=== PATIENT | male | born 1970 | race Caucasian/White ===

== ENCOUNTER 2019-06-06 09:39 | Day surgery (SDC) | payer MEDICARE ==
--- NOTE | 2019-06-06 12:47 | OP ---
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 PROCEDURE PERFORMED: Colonoscopy with biopsies. INDICATION: A 49-year-old man with chronic diarrhea. This is his first colonoscopy. MEDICATIONS: See Anesthesia record. FINDINGS: After discussion of the risks, benefits, and alternatives of the procedure, informed consent was obtained and witnessed. Pre-endoscopic cardiopulmonary examination was satisfactory. Time-out was performed before sedation was achieved. Sedation was achieved with Anesthesia assistance in the endoscopy unit. Digital rectal exam was performed, which was unremarkable. A Pentax adult colonoscope was inserted into the anus and passed forward to the cecum in the usual fashion. The cecal base was identified by the appendiceal orifice as well as the ileocecal valve, seen on retroflexion in the right colon. The terminal ileum was intubated. The ileal mucosa appeared normal. The colonoscope was slowly withdrawn in a gradual and circumferential manner with careful examination of the entire colonic mucosa. The quality of the prep was good. The colonic mucosa appeared normal throughout. There was no evidence of any inflammation. No polyps or any mass lesions. Random biopsies were obtained from the left and right side of the colon to rule out microscopic colitis. Retroflexion in the rectum was unremarkable. The colonoscope was completely withdrawn, and the patient allowed to recover. The patient tolerated the procedure well. There were no immediate postprocedure complications. IMPRESSION: Normal colonoscopy to the terminal ileum, with random colon biopsies obtained. RECOMMENDATIONS: 1. Follow up pathology on the random colon biopsies. 2. Repeat colonoscopy for screening in 10 years. 3. Follow up in the [facility] with physician speech assistant in 1 month. Job ID: [id number]
== END 2019-06-06 11:45 | disposition home or self-care (01) ==
LOC: EEVIPCON 09:39 → SDC 09:39
PROVIDERS: ATTEND Internal Medicine
PROC: 0DBG8ZX Excision of Left Large Intestine, Via Natural or Artificial Opening Endoscopic, Diagnostic (ICD-10-PCS; principal; 2019-06-06)
PROC: 0DBF8ZX Excision of Right Large Intestine, Via Natural or Artificial Opening Endoscopic, Diagnostic (ICD-10-PCS; 2019-06-06)
DX: K52.9 Noninfective gastroenteritis and colitis, unspecified (principal); G80.0 Spastic quadriplegic cerebral palsy; F41.9 Anxiety disorder, unspecified; G47.00 Insomnia, unspecified; G40.309 Generalized idiopathic epilepsy and epileptic syndromes, not intractable, without status epilepticus; Z79.899 Other long term (current) drug therapy
CPT/HCPCS: 88305